=== PATIENT | female | born 1945 | race Caucasian/White ===

== ENCOUNTER 2017-03-18 07:15 | Inpatient (IN) | payer OTHER ==
[~2017-03-18] VITALS: Ht 160 cm; Wt 72.6 kg
[2017-03-18] MEDS ORDERED: RESTORIL30 M1 PO (09:02)
[2017-03-18] MEDS ORDERED: LISINOPRIL5 MG PO (09:02)
[2017-03-18] MEDS ORDERED: M.V.I. ADULT10 ML IV (09:03)
[2017-03-18] MEDS ORDERED: RISPERIDONE0.5 MG PO (09:03)
== END 2017-03-30 16:33 | DRG 470 ==
LOC: SURH 03-27 05:33 → O/R 03-27 05:33 → SURH 03-27 07:15
PROVIDERS: Orthopaedic Surgery
PROC: 0SRC0J9 Replacement of Right Knee Joint with Synthetic Substitute, Cemented, Open Approach (ICD-10-PCS; principal; 2017-03-27 13:00)
DX: M17.11 Unilateral primary osteoarthritis, right knee (principal)